=== PATIENT | male | born 1950 | race Caucasian/White ===

== ENCOUNTER 2019-08-20 15:29 | Emergency (ER) | payer OTHER, MEDICARE, SELFPAY ==
--- NOTE | ~2019-08-20 | XR_ITS ---
EXAMINATION: XR foot LT 2V EXAM DATE: 08/20/2019 17:06 INDICATION: Left plantar lateral foot pain, numbness in ankle. TECHNIQUE: Left foot frontal and lateral projections. There is no prior study for comparison. FINDINGS: There are no acute fractures or dislocations identified. There is no subcutaneous gas. Th e soft tissue is unremarkable. There are no radiopaque foreign bodies. There is mild polyarticular midfoot and first MTP primary osteoarthritis. No periosteal reaction or band of sclerosis to sugges t subacute stress fracture. There are no bony erosions identified. IMPRESSION: Mild polyarticular left foot osteoarthritis. Reviewed, dictated and finalized at location A. NG TRAINER
[2019-08-20 16:13] VITALS: BP 113/77; PULSE 82; RESP 19; TEMP 36.6; O2SAT 98
--- NOTE | 2019-08-20 18:31 | ED.LOWEXIN ---
HPI - Extremity Injury (Lower) General Chief Complaint: Extremity Injury, Lower Stated Complaint: left foot pain, Time Seen by Provider: 08/20/19 18:05 Source: patient Mode of arrival: ambulatory Limitations: no limitations History of Present Illness HPI Narrative: Patient is a 69-year-old male who presents to emergency department for evaluation of pain to the foot and ankle noting that a day ago he developed some sharp pain along the plantar aspect of the heel that now radiates up into the ankle laterally patient denies injury or trauma attempted to go bowling today with increasing pain now is having difficulty with bearing weight patient notes that the pain does radiate up the moore patient presents per private vehicle in no distress has not taken anything for his symptoms denies any radicular symptoms or paresthesias or similar occurrence in the past Related Data Allergies Allergy/AdvReac Type Severity Reaction Status Date / Time amiodarone Allergy Severe Unverified 07/03/18 19:37 procainamide Allergy Severe Unverified 07/03/18 19:37 sotalol Allergy Severe Unverified 07/03/18 19:37 Review of Systems Review of Systems: Narrative: CONSTITUTIONAL: Denies fever, chills, or sweats. SKIN: Denies bruising or swelling MUSCULOSKELETAL: Positive for left ankle pain and foot NEUROLOGIC: Denies numbness, tingling PMFSH Past Medical History Medical History (Updated 08/20/19 @ 18:41 by Rene Reese PA-C) Hypertension Insulin dependent diabetes mellitus Surgical History Surgical History History of permanent cardiac pacemaker placement Social History Social History (Updated 08/20/19 @ 18:39 by Rene Reese PA-C) Smoking status: Never smoker Gender identity (if verbalized by the patient): Male Exam Narrative: Exam Narrative: GENERAL: Well-appearing, well-nourished, and in no acute distress. HEAD: Normocephalic, atraumatic. EYES: PERRLA and EOMI. ENT: Nares clear, no rhinorrhea or epistaxis. Mucous membranes moist. EXTREMITIES: Normal range of motion. No edema. Tenderness along the plantar aspect of the left foot at the level of the heel tenderness of the lateral aspect of the left ankle no deformities noted. No erythema warmth to touch or other abnormalities of the ankle or foot noted SKIN: Warm, dry, no rash. NEURO: No focal deficits. Alert and oriented x3. Cranial nerves II through XII grossly intact. Neurovascularly intact PSYCH: Normal mood and affect. Course Course Emergency Course: Patient in the room aware of case findings treatment plan and diagnosis agreeing to follow-up as directed Vital Signs Vital signs: Vital Signs Temperature 97.9 F 08/20/19 16:13 Pulse Rate 82 08/20/19 16:13 Respiratory Rate 19 08/20/19 16:13 Blood Pressure 113/77 08/20/19 16:13 Pulse Oximetry 98 08/20/19 16:13 Temperature 97.9 F 08/20/19 16:13 Pulse Rate 82 08/20/19 16:13 Respiratory Rate 19 08/20/19 16:13 Blood Pressure 113/77 08/20/19 16:13 Pulse Oximetry 98 08/20/19 16:13 MDM - Extremity Injury (Lower) MDM Narrative Medical decision making narrative: Patients injury or pain is consistent with musculoskeletal etiology. No signs of neurological or vascular compromise on exam. Compartments and tisues are soft without signs of compartment syndrome. Pain is felt appropriate for further evaluation on an outpatient basis. Discharge Plan Discharge Clinical Impression: Acute left ankle pain Patient Disposition: Home, Self-Care Condition: Stable Instructions: Antibiotic Form, Arthralgia (ED) Additional Instructions: Wear Richy wrap with limited weight on the affected leg until able to bear weight without pain. Ice and elevate extremity. Pain medication as needed and directed. Follow up with your doctor for further care in the next 7 days. Return if symptoms worsen or concerns or any increase in redness swelling pain
[2019-08-20] MEDS: KETOROLAC (*BKC) 60 MG/2 ML VIAL 15 MG IM (18:54)
== END 2019-08-20 19:01 | disposition home or self-care (01) ==
PROVIDERS: Emergency Provider Emergency Medicine; PCP Family Medicine
DX: M25.572 Pain in left ankle and joints of left foot (principal); I10 Essential (primary) hypertension; E11.9 Type 2 diabetes mellitus without complications; Z95.0 Presence of cardiac pacemaker
CPT/HCPCS: 73620; 96372; 99283; A9270; J1885

== ENCOUNTER 2020-04-30 09:25 | Emergency (ER) | payer MEDICARE, OTHER, SELFPAY ==
[2020-04-30] VITALS (37 sets, daily range): BP systolic 102–143; BP diastolic 78–120; PULSE 79–95; RESP 12–20; TEMP 36.4; O2SAT 91–100
--- NOTE | ~2020-04-30 | CT_ITS ---
EXAMINATION: CT brain wo con DATE: 04/30/2020 10:56 INDICATION: Dizziness. TECHNIQUE: Computed tomography (CT) of the head was performed without intravenous contrast. The mA wa s adjusted according to patient size. Iterative reconstruction technique was employed. The dose-lengt h product was 605.33 mGy-cm. COMPARISON: Head CT 03/30/2016 FINDINGS: There is an old lacunar infarct in right caudate nucleus. There are scattered areas of low attenuation in the cerebral white matter, which is within normal limits for the patient's age. There is no intracranial hemorrhage, acute infarction, or abnormal intracranial mass lesion. The ventricles are normal in size. There is mild mucosal thickening in the paranasal sinuses. There are likely strange ges of ocular lens replacement surgeries. The mastoid air cells are normal. IMPRESSION: 1. Old lacunar infarct in right caudate nucleus. Reviewed, dictated and finalized at location A.
--- NOTE | ~2020-04-30 | XR_ITS ---
EXAMINATION: XR chest 2V DATE: 04/30/2020 09:58 INDICATION: Dyspnea and dizziness TECHNIQUE: PA and lateral views of the chest were obtained. COMPARISON: Chest radiograph dated 07/24/2018 FINDINGS: Pulmonary vascular congestion and mild increased interstitial pattern and are a few peripheral Nils B-lines at the bilateral lower lung zones consistent with mild pulmonary edema. No pleural effusion or pneumothorax. Cardiomegaly. Calcified AP window lymph nodes consistent with old granulomatous dise ase. Three lead pacemaker/AICD seen with leads projecting over the expected locations of the right at rial appendage, apex of the right ventricle and overlying the left ventricle likely having traversed the coronary sinus. Mild thoracic spondylosis and chronic mild anterior wedging of a couple lower tho racic vertebral bodies. IMPRESSION: 1. Likely congestive heart failure with cardiomegaly and mild pulmonary edema at the lung bases. Reviewed, dictated and finalized at location B. IMPRESSION: 1. Likely congestive heart failure with cardiomegaly and mild pulmonary edema a t the lung bases.
--- NOTE | 2020-04-30 09:36 | ECG_ITS ---
Measurements Intervals [place] Rate: 81 P: [place]: 0 QRS: -80 QRSD: 144 T: 95 QT: 429 QTc: 500 Interpretive Statements ELECTRONIC VENTRICULAR PACEMAKER FREQUENT VENTRICULAR PREMATURE COMPLEX NO FURTHER INTERPRETATION IS POSSIBLE ABNORMAL ECG Electronically Signed On 04-30-2020 9:44:50 CDT by Jonnei Brock D.O.
[2020-04-30 09:43] LABS: Basophils Percent Auto 0.4 % (0.2-1.2); Eosinophils Absolute Auto 0.1 K/mm3 (0-0.3); Eosinophils Percent Auto 1.2 % (0-4.4); Hematocrit 37.6 % (42.0-52.0); Hemoglobin 12.2 g/dL (14.0-18.0); Immature Granulocyte Absolute 0.02 K/mm3 (0.00-0.031); Immature Granulocyte Percent A 0.3 % (0-0.5); Lymphocytes Absolute Auto 0.88 K/mm3 (0.9-3.2); Lymphocytes Percent Auto 13.2 % (18.3-44.2); Mean Corpuscular HGB Conc 32.4 g/dl (32-36); Mean Corpuscular Hemoglobin 33.2 pg (26-34); Mean Corpuscular Volume 102.5 fl (80-100); Monocytes Absolute Auto 0.6 K/mm3 (0.1-0.6); Monocytes Percent Auto 8.5 % (2.6-8.5); Neutrophils Absolute Auto 5.1 K/mm3 (1.3-6.7); Neutrophils Percent Auto 76.4 % (45.5-73.1); Platelet Count Result 152 k/mm3 (150-375); Red Blood Count 3.67 M/mm3 (4.6-6.20); Red Cell Distribution Width 13.9 % (11.5-14.5); White Blood Count 6.7 K/mm3 (4.5-10.0)
[2020-04-30 09:54] LABS: INR 2.3; Prothrombin Time 24.5 Seconds (11.1-14.7)
[2020-04-30 09:59] LABS: Anion Gap 11 mmol/L (8-16); Blood Urea Nitrogen 31 mg/dL (9-20); Calcium 8.7 mg/dL (8.4-10.2); Carbon Dioxide 29 mmol/L (22-30); Chloride 101 mmol/L (98-107); Estimated CRCL calculation 62 ml/min; Estimated Glomerular Filt Rate 46; Glucose 163 mg/dL (75-110); Sodium 141 mmol/L (137-145)
[2020-04-30 10:08] LABS: NT Pro B Type Natriuretic Pept 3930 PG/ML (5-100); Troponin I 0.014 ng/mL (0.000-0.034)
[2020-04-30 10:24] LABS: Potassium 3.5 mmol/L (3.4-5.0)
[2020-04-30] MEDS: FUROSEMIDE INJ 40 MG/4 ML VIAL IV PUSH (11:04)
--- NOTE | 2020-04-30 12:27 | ED.GENADULT ---
HPI - General Adult General Chief complaint: Shortness of Breath/Dyspnea Stated complaint: sob Time Seen by Provider: 04/30/20 09:59 Source: patient Mode of arrival: ambulatory Limitations: no limitations History of Present Illness HPI narrative: Patient is a 69-year-old male who presents to emergency department for evaluation shortness of breath had an episodic period of 1 hour where he was having difficulty of catching his breath felt dyspneic with dizziness patient noticed that it almost caused him to fall patient on arrival per EMS to emergency department is denying any pain notes slight dizziness. Patient has had a similar episodes he notes over the last several weeks. Patient on arrival to emergency department as noted is in no distress Related Data Home Medications Medication Instructions Recorded Confirmed atorvastatin 10 mg PO DAILY 04/30/20 cholecalciferol (vitamin D3) 25 mcg PO DAILY 04/30/20 [Vitamin D3] furosemide [Lasix] 40 mg PO DAILY 04/30/20 glipizide 5 mg PO DAILY 04/30/20 insulin glargine [Lantus U-100 40 unit SUBCUT DAILY 04/30/20 Insulin] metoprolol tartrate 75 mg PO DAILY 04/30/20 omega-3 fatty acids [[place] 3] 1,000 mg PO DAILY 04/30/20 rivaroxaban [Xarelto] 20 mg PO DAILY 04/30/20 sacubitril-valsartan [Entresto] 1 tablet PO BID 04/30/20 sitagliptin [Januvia] 100 mg PO DAILY 04/30/20 spironolactone 25 mg PO DAILY 04/30/20 04/30/20 Allergies Allergy/AdvReac Type Severity Reaction Status Date / Time amiodarone Allergy Severe Unknown Verified 04/30/20 09:39 procainamide Allergy Severe Unknown Verified 04/30/20 09:39 sotalol Allergy Severe Unknown Verified 04/30/20 09:39 Review of Systems Review of Systems: All systems reviewed & are unremarkable except as noted in HPI and below PMFSH Past Medical History Medical History Hypertension Insulin dependent diabetes mellitus Surgical History Surgical History History of permanent cardiac pacemaker placement Social History Social History Smoking status: Never smoker Gender identity (if verbalized by the patient): Male Exam Narrative: Exam Narrative: GENERAL: Well-appearing, well-nourished, and in no acute distress. HEAD: Normocephalic, atraumatic. EYES: PERRLA and EOMI. ENT: Nares clear, no rhinorrhea or epistaxis. Mucous membranes moist. Oropharynx without tonsillar hypertrophy exudate or other lesions. NECK: Supple. No adenopathy or masses. CHEST: Clear to auscultation. No respiratory distress. No wheezes rales or rhonchi HEART: Regular rate and rhythm. No murmur heard. Normal peripheral pulses. ABDOMEN: Soft, nontender, nondistended, normal active bowel sounds. EXTREMITIES: Normal range of motion. 2+ edema to the lower extremities SKIN: Warm, dry, no rash. NEURO: No focal deficits. Alert and oriented x3. Cranial nerves II through XII grossly intact PSYCH: Normal mood and affect. Course Course Emergency Course: Patient in the room at this time resting comfortably was given Lasix and will be transferred to [facility] under the care of his cardiology group. Patient had his pacemaker interpreted which is showing some left ventricular issues that could potentially be contributing to his heart failure picture today. Patient agrees with the transfer and is aware of case findings treatment plan and diagnosis Consultations Consultation #1: Spoke with Dr. Agustin cardiology at [facility] who is agreed to accept the patient Date: 04/30/20 Time: 15:04 Vital Signs Vital signs: Vital Signs Temperature 97.5 F L 04/30/20 09:29 Pulse Rate 84 04/30/20 09:29 Respiratory Rate 20 04/30/20 09:29 Blood Pressure 120/85 04/30/20 09:29 Pulse Oximetry 100 04/30/20 09:29 Temperature 97.5 F L 04/30/20 09:29 Pulse Rate 81 04/30/20 17:28 Res
--- NOTE | 2020-04-30 17:33 | PC.NURSE ---
called [facility] access line [id number] no bed waiting for discharges
--- NOTE | 2020-04-30 19:23 | PC.NURSE ---
[facility] called and updated ETA from 1944 to 2099
--- NOTE | 2020-04-30 19:25 | PC.NURSE ---
called [facility] to request transport. declined. short on trqians ritchie
== END 2020-04-30 20:21 | disposition short-term general hospital (02) ==
PROVIDERS: Emergency Provider Emergency Medicine; PCP Family Medicine
DX: I11.0 Hypertensive heart disease with heart failure (principal); I50.9 Heart failure, unspecified; E11.9 Type 2 diabetes mellitus without complications; Z95.0 Presence of cardiac pacemaker; Z79.4 Long term (current) use of insulin; Z79.01 Long term (current) use of anticoagulants
CPT/HCPCS: 36415; 70450; 71046; 80048; 83880; 84484; 85025; 85610; 85730; 93005; 96374; 96375; 99285; J0131; J1940

== ENCOUNTER 2020-06-13 21:11 | Emergency (ER) | payer MEDICARE, SELFPAY ==
[2020-06-13 21:14] VITALS: BP 113/84; PULSE 80; RESP 16; TEMP 36.6; O2SAT 100
--- NOTE | 2020-06-13 21:18 | ED.GENADULT ---
HPI - General Adult General Chief complaint: Unspecified Stated complaint: dobutamine drip isn't working Time Seen by Provider: 06/13/20 21:18 Source: patient and family Mode of arrival: ambulatory Limitations: no limitations History of Present Illness HPI narrative: Patient is a 70-year-old male with a history of congestive heart failure, estimated ejection fraction 8%, on a dobutamine infusion with recent discharge from [facility], who presents for evaluation of dobutamine pump malfunction. Patient states that his pump has been alarming for high pressure over the past 4 hours. Is not been administering any medication. Patient's has been trying to adjust the pump without success. Patient otherwise feels well without any chest pain, shortness of breath. Related Data Home Medications Medication Instructions Recorded Confirmed atorvastatin 10 mg PO DAILY 04/30/20 cholecalciferol (vitamin D3) 25 mcg PO DAILY 04/30/20 [Vitamin D3] furosemide [Lasix] 40 mg PO DAILY 04/30/20 glipizide 5 mg PO DAILY 04/30/20 insulin glargine [Lantus U-100 40 unit SUBCUT DAILY 04/30/20 Insulin] metoprolol tartrate 75 mg PO DAILY 04/30/20 omega-3 fatty acids [[place] 3] 1,000 mg PO DAILY 04/30/20 rivaroxaban [Xarelto] 20 mg PO DAILY 04/30/20 sacubitril-valsartan [Entresto] 1 tablet PO BID 04/30/20 sitagliptin [Januvia] 100 mg PO DAILY 04/30/20 spironolactone 25 mg PO DAILY 04/30/20 04/30/20 Allergies Allergy/AdvReac Type Severity Reaction Status Date / Time amiodarone Allergy Severe Unknown Verified 04/30/20 09:39 procainamide Allergy Severe Unknown Verified 04/30/20 09:39 sotalol Allergy Severe Unknown Verified 04/30/20 09:39 Review of Systems Review of Systems: Narrative: CONSTITUTIONAL: Denies fever CARDIOVASCULAR: Denies chest pain RESPIRATORY: Denies cough or dyspnea. GASTROINTESTINAL: Denies abdominal pain SKIN: Denies rash MUSCULOSKELETAL: Denies back pain NEUROLOGIC: Denies headache PMFSH Past Medical History Medical History Asthma Atrial fibrillation Bronchitis Cardiac defibrillator in place CHF (congestive heart failure) Hypertension Insulin dependent diabetes mellitus Pneumonia Surgical History Surgical History History of permanent cardiac pacemaker placement Social History Social History Smoking status: Never smoker Gender identity (if verbalized by the patient): Male Exam Narrative: Exam Narrative: GENERAL: Awake, alert, conversant HEAD: Normocephalic, atraumatic. EYES: PERRLA and EOMI. ENT: Nares clear, no rhinorrhea or epistaxis. Mucous membranes moist. NECK: Supple. CHEST: No respiratory distress, breathing even and non labored, right subclavian central line in place, c/d/i HEART: Regular rate, sinus rhythm ABDOMEN:Non distended, non tender EXTREMITIES: Normal range of motion. No edema. SKIN: Warm, dry, no rash. NEURO:No focal deficits. Alert and oriented x3 Course Vital Signs Vital signs: Vital Signs Temperature 36.6 C 06/13/20 21:14 Pulse Rate 80 06/13/20 21:14 Respiratory Rate 16 06/13/20 21:14 Blood Pressure 113/84 06/13/20 21:14 Pulse Oximetry 100 06/13/20 21:14 Temperature 36.6 C 06/13/20 21:14 Pulse Rate 80 06/13/20 21:14 Respiratory Rate 16 06/13/20 21:14 Blood Pressure 113/84 06/13/20 21:14 Pulse Oximetry 100 06/13/20 21:14 Medical Decision Making MDM Narrative Medical decision making narrative: Patient presented for dobutamine pump malfunction. At the time of assessment, ABCs are intact and vital signs are stable. Patient feels well without any other symptoms. Patient had a kink in the line at the base of the pump. This was straightened out, the alarm stopped on the patient's dobutamine pump, and started to infuse normal
--- NOTE | 2020-06-13 21:22 | PC.NURSE ---
Pt arrived with double lumen power vladislav in right chest wall. Caps changed. Pts line flushes easily but gives no blood return. MD notified.
--- NOTE | 2020-06-13 21:30 | PC.NURSE ---
Assisted in priming and setting up pts home infusion pump. Line was kinked where tubing clipped into pump. Line primed and pump started without difficulty. notified.
[2020-06-13 22:21] VITALS: BP 115/76; PULSE 80; RESP 13; O2SAT 100
== END 2020-06-13 22:23 | disposition home or self-care (01) ==
LOC: ANHED 21:54
PROVIDERS: Emergency Provider Emergency Medicine; PCP Family Medicine
DX: T82.598A Other mechanical complication of other cardiac and vascular devices and implants, initial encounter (principal); I50.9 Heart failure, unspecified; J45.909 Unspecified asthma, uncomplicated; I48.91 Unspecified atrial fibrillation; I11.0 Hypertensive heart disease with heart failure; Z95.0 Presence of cardiac pacemaker; E11.9 Type 2 diabetes mellitus without complications; Z79.4 Long term (current) use of insulin
CPT/HCPCS: 99282

== ENCOUNTER 2020-06-16 04:16 | Emergency (ER) | payer MEDICARE, SELFPAY ==
[2020-06-16 04:19] VITALS: BP 94/60; PULSE 82; RESP 15; TEMP 36.5; O2SAT 100
--- NOTE | 2020-06-16 04:27 | PC.NURSE ---
UMANG MORFIN IN ROOM AT THIS TIME ATTEMPTING TO START DOBUTAMINE PUMP
[2020-06-16 04:31] VITALS: BP 99/68; PULSE 80; RESP 16; O2SAT 100
--- NOTE | 2020-06-16 04:34 | ED.GENADULT ---
HPI - General Adult General Chief complaint: Recheck/Abnormal Lab/Rx Stated complaint: dobutamine drip not working Time Seen by Provider: 06/16/20 04:23 History of Present Illness HPI narrative: Patient is a 70-year-old gentleman who presents emerged part with chief complaint of malfunction of dobutamine pump. Patient reports that they were changing the bag of dobutamine and when they read a lot the line onto the pump the pump Giving an error. I attempted multiple times to receipt the cartridge without success. They came to the emergency department for evaluation. Currently the patient has no complaints at this time denies chest pain denies shortness of breath. Related Data Home Medications Medication Instructions Recorded Confirmed atorvastatin 10 mg PO DAILY 04/30/20 cholecalciferol (vitamin D3) 25 mcg PO DAILY 04/30/20 [Vitamin D3] furosemide [Lasix] 40 mg PO DAILY 04/30/20 glipizide 5 mg PO DAILY 04/30/20 insulin glargine [Lantus U-100 40 unit SUBCUT DAILY 04/30/20 Insulin] metoprolol tartrate 75 mg PO DAILY 04/30/20 omega-3 fatty acids [[place] 3] 1,000 mg PO DAILY 04/30/20 rivaroxaban [Xarelto] 20 mg PO DAILY 04/30/20 sacubitril-valsartan [Entresto] 1 tablet PO BID 04/30/20 sitagliptin [Januvia] 100 mg PO DAILY 04/30/20 spironolactone 25 mg PO DAILY 04/30/20 04/30/20 Allergies Allergy/AdvReac Type Severity Reaction Status Date / Time amiodarone Allergy Severe Unknown Verified 06/16/20 04:26 procainamide Allergy Severe Unknown Verified 06/16/20 04:26 sotalol Allergy Severe Unknown Verified 06/16/20 04:26 Review of Systems Review of Systems: Narrative: CONSTITUTIONAL: Denies fever, chills, or sweats. EYES: Denies visual changes, redness, or discharge. ENT: Denies rhinorrhea, congestion, sore throat, or otalgia. CARDIOVASCULAR: Denies chest pain, palpitations, or edema. RESPIRATORY: Denies cough or dyspnea. GASTROINTESTINAL: Denies abdominal pain, nausea, vomiting, or diarrhea. GENITOURINARY: Denies dysuria or hematuria. SKIN: Denies rash or itching. MUSCULOSKELETAL: Denies back pain, joint pain, or myalgia. NEUROLOGIC: Denies headache, numbness, or weakness. PSYCHIATRIC: Denies anxiety or depression. A 10 system review of systems was completed on the patient and is negative except for what is stated in the HPI. Nursing and ancillary documentation was reviewed. [facility] Past Medical History Medical History Asthma Atrial fibrillation Bronchitis Cardiac defibrillator in place CHF (congestive heart failure) Hypertension Insulin dependent diabetes mellitus Pneumonia Surgical History Surgical History History of permanent cardiac pacemaker placement Social History Social History Smoking status: Never smoker Gender identity (if verbalized by the patient): Male Sexual Orientation (if Verbalized by the Patient): Straight or Heterosexual Exam Narrative: Exam Narrative: GENERAL: Well-appearing, well-nourished, and in no acute distress. HEAD: Normocephalic, atraumatic. EYES: PERRLA and EOMI. ENT: Nares clear, no rhinorrhea or epistaxis. Mucous membranes moist. NECK: Supple. CHEST: Clear to auscultation. No respiratory distress. There is a tunneled subclavian access in the right chest wall HEART: Regular rate and rhythm. No murmur heard. Normal peripheral pulses. ABDOMEN: Soft, nontender, nondistended, normal active bowel sounds. EXTREMITIES: Normal range of motion. No edema. SKIN: Warm, dry, no rash. NEURO: No focal deficits. Alert and oriented x3. PSYCH: Normal mood and affect. Course Course Emergency Course: The pump was reassessed and the cartridge was able to attach and the pump correctly started. Currently the pump is operational and working within normal parameters Vital Signs Vital signs: Vital
--- NOTE | 2020-06-16 04:36 | PC.NURSE ---
md able to get pump working at this time. educated pt and on what to do differently to get the pump working.
[2020-06-16 04:51] VITALS: BP 105/70; PULSE 82; RESP 18; O2SAT 99
== END 2020-06-16 04:55 | disposition home or self-care (01) ==
PROVIDERS: Emergency Provider Emergency Medicine; PCP Family Medicine
DX: T82.598A Other mechanical complication of other cardiac and vascular devices and implants, initial encounter (principal); J45.909 Unspecified asthma, uncomplicated; I48.91 Unspecified atrial fibrillation; Z79.01 Long term (current) use of anticoagulants; Z79.4 Long term (current) use of insulin; Z95.810 Presence of automatic (implantable) cardiac defibrillator; I11.0 Hypertensive heart disease with heart failure; I50.9 Heart failure, unspecified; E11.9 Type 2 diabetes mellitus without complications
CPT/HCPCS: 99281

== ENCOUNTER 2020-08-25 21:52 | Emergency (ER) | payer MEDICARE, SELFPAY ==
[2020-08-25 22:01] VITALS: BP 93/62; PULSE 81; RESP 20; TEMP 36.3; O2SAT 100
--- NOTE | 2020-08-25 22:09 | ECG_ITS ---
Measurements Intervals [place] Rate: 80 P: [place]: 0 QRS: -82 QRSD: 160 T: 93 QT: 461 QTc: 532 Interpretive Statements ELECTRONIC VENTRICULAR PACEMAKER NO FURTHER INTERPRETATION IS POSSIBLE ATYPICAL ECG Electronically Signed On 08-26-2020 6:57:56 MACHINE ROOM OPERATOR by Jonnie Brock D.O.
[2020-08-25 22:30] LABS: Basophils Absolute Auto 0.1 K/mm3 (0.0-0.1); Basophils Percent Auto 0.8 % (0.2-1.2); Eosinophils Absolute Auto 0.1 K/mm3 (0-0.3); Eosinophils Percent Auto 2.3 % (0-4.4); Hemoglobin 11.2 g/dL (14.0-18.0); Immature Granulocyte Absolute 0.02 K/mm3 (0.00-0.031); Immature Granulocyte Percent A 0.3 % (0-0.5); Lymphocytes Absolute Auto 0.69 K/mm3 (0.9-3.2); Lymphocytes Percent Auto 11.5 % (18.3-44.2); Mean Corpuscular HGB Conc 32.9 g/dl (32-36); Mean Corpuscular Hemoglobin 30.1 pg (26-34); Mean Corpuscular Volume 91.4 fl (80-100); Mean Platelet Volume 9.5 fl (7.4-10.4); Monocytes Absolute Auto 0.5 K/mm3 (0.1-0.6); Monocytes Percent Auto 8.2 % (2.6-8.5); Neutrophils Absolute Auto 4.6 K/mm3 (1.3-6.7); Neutrophils Percent Auto 76.9 % (45.5-73.1); Platelet Count Result 167 k/mm3 (150-375); Red Blood Count 3.72 M/mm3 (4.6-6.20); Red Cell Distribution Width 13.2 % (11.5-14.5)
[2020-08-25 22:45] LABS: Alanine Aminotransferase 49 U/L (4-50); Albumin Level 4.2 g/dL (3.5-5.1); Alkaline Phosphatase 93 U/L (38-126); Anion Gap 9 mmol/L (8-16); Aspartate Amino Transferase 45 U/L (17-59); Bilirubin,Total 0.9 mg/dL (0.2-1.3); Blood Urea Nitrogen 51 mg/dL (9-20); Calcium 9.3 mg/dL (8.4-10.2); Carbon Dioxide 33 mmol/L (22-30); Chloride 91 mmol/L (98-107); Estimated CRCL calculation 39 ml/min; Estimated Glomerular Filt Rate 33; Glucose 214 mg/dL (75-110); Potassium 3.8 mmol/L (3.4-5.0); Sodium 133 mmol/L (137-145)
[2020-08-26 00:14] VITALS: BP 108/76; PULSE 80; RESP 12; O2SAT 100
[2020-08-26 00:16] VITALS: BP 100/73; PULSE 80; RESP 13; O2SAT 100
--- NOTE | 2020-08-26 00:36 | ED.RECABL ---
HPI - Recheck/Abnormal Lab/Rx General Chief Complaint: Recheck/Abnormal Lab/Rx Stated Complaint: Potassium too high Time Seen by Provider: 08/26/20 00:13 History of Present Illness HPI narrative: Patient is a pleasant 70-year-old male with end-stage heart failure with an EF of 8% who presents to the ER with an abnormal outpatient lab test. He had blood drawn today and his potassium level was 7.3. He and his were told to come to the ER urgently for reevaluation. Patient is having no chest pain or shortness of breath. Has been compliant with his medications. He does take torsemide. He also takes potassium 40 mEq in the morning and 20 mEq in the evening. He has had no issues with electrolyte abnormality in the past. He also has a tunneled catheter to his right chest where he has a constant dobutamine infusion. Related Data Home Medications Medication Instructions Recorded Confirmed atorvastatin 10 mg PO DAILY 04/30/20 cholecalciferol (vitamin D3) 25 mcg PO DAILY 04/30/20 [Vitamin D3] furosemide [Lasix] 40 mg PO DAILY 04/30/20 glipizide 5 mg PO DAILY 04/30/20 insulin glargine [Lantus U-100 40 unit SUBCUT DAILY 04/30/20 Insulin] metoprolol tartrate 75 mg PO DAILY 04/30/20 omega-3 fatty acids [[place] 3] 1,000 mg PO DAILY 04/30/20 rivaroxaban [Xarelto] 20 mg PO DAILY 04/30/20 sacubitril-valsartan [Entresto] 1 tablet PO BID 04/30/20 sitagliptin [Januvia] 100 mg PO DAILY 04/30/20 spironolactone 25 mg PO DAILY 04/30/20 04/30/20 Allergies Allergy/AdvReac Type Severity Reaction Status Date / Time amiodarone Allergy Severe Unknown Verified 08/25/20 21:53 procainamide Allergy Severe Unknown Verified 08/25/20 21:53 sotalol Allergy Severe Unknown Verified 08/25/20 21:53 Review of Systems Constitutional: Constitutional: Denies chills, Denies fever(s) and Denies weakness Cardiovascular: Cardiovascular: Denies chest pain, Denies rapid heart rate and Denies radiating jaw, neck or arm pain Respiratory: Respiratory: Denies cough, Denies dyspnea and Denies wheezing Gastrointestinal: Gastrointestinal: Denies abdominal pain, Denies nausea and Denies vomiting Neurologic: Denies dizziness, Denies focal weakness and Denies numbness PMFSH Past Medical History Medical History Asthma Atrial fibrillation Bronchitis Cardiac defibrillator in place CHF (congestive heart failure) Hypertension Insulin dependent diabetes mellitus Pneumonia Surgical History Surgical History History of permanent cardiac pacemaker placement Social History Social History Smoking status: Never smoker Gender identity (if verbalized by the patient): Male Exam Narrative: Exam Narrative: GENERAL: Well-appearing, well-nourished, and in no acute distress. HEAD: Normocephalic, atraumatic. CHEST: Clear to auscultation. No respiratory distress. HEART: Regular rate and rhythm. Normal peripheral pulses. ABDOMEN: Soft, nontender, nondistended. EXTREMITIES: Normal range of motion. No edema. SKIN: Warm, dry, no rash. NEURO: Awake and alert, clear speech. PSYCH: Normal mood and affect. Course Course Emergency Course: Patient informed of results. Patient's abnormal lab result was likely result of a hemolyzed lab sample. Apparently the patient had to be stuck multiple times for the lab this may have resulted in the abnormal value. Vital Signs Vital signs: Vital Signs Temperature 97.3 F L 08/25/20 22:01 Pulse Rate 81 08/25/20 22:01 Respiratory Rate 20 08/25/20 22:01 Blood Pressure 93/62 L 08/25/20 22:01 Pulse Oximetry 100 08/25/20 22:01 Temperature 97.3 F L 08/25/20 22:01 Pulse Rate 80 08/26/20 00:16 Respiratory Rate 13 08/26/20 00:16 Blood Pressure 100/73 08/26/20 00:16 Pulse Oximetry 100 08/26/20 00:16 MDM - Rech
[2020-08-26 00:45] VITALS: BP 100/73; PULSE 80; RESP 16; O2SAT 100
== END 2020-08-26 00:45 | disposition home or self-care (01) ==
PROVIDERS: Emergency Provider Emergency Medicine; PCP Family Medicine
DX: E87.5 Hyperkalemia (principal); I48.91 Unspecified atrial fibrillation; I11.0 Hypertensive heart disease with heart failure; I50.84 End stage heart failure; E11.9 Type 2 diabetes mellitus without complications; J45.909 Unspecified asthma, uncomplicated; Z95.810 Presence of automatic (implantable) cardiac defibrillator; Z79.01 Long term (current) use of anticoagulants; Z79.4 Long term (current) use of insulin
CPT/HCPCS: 36415; 80053; 85025; 93005; 99283